=== PATIENT | male | born 1990 | race Caucasian/White ===

== ENCOUNTER 2021-11-24 19:53 | Emergency (ER) | payer BC ==
--- OUTSIDE RECORDS SUMMARY | 2021-11-24 19:56 | XMS REPORT | Continuity of Care Document ---
:1990 Author Organization [facility] t Address [facility] Syd Webb [address] [place] [address] Care Team Providers Name Role Phone Purvi Perez Attending Clinician Juan Jose Bentley DO Attending Clinician GRACE Attending Clinician Unavailable Grace MANCUSO Attending Clinician Payers Payer Name Policy Type Policy Number Effective Date Expiration Date S ource Problems Condition Condition Condition Status Onset Resolution Last Treating Co mments Source Name Details Category Date Date Treatment Clinician Date No known No known Disease Unive rs active active ity of problems problems [facility] Allergies, Adverse Reactions, Alerts Allergy Allergy Status Severity Reaction(s) Onset Inactive Treating Comm ents Source Name Type Date Date Clinician NO KNOWN Drug Active Univers ALLERGIE Class ity of S [facility] Social History Social Habit Start Date Stop Date Quantity Comments Source Exposure to Not sure [facility]-CoV-2 [facility] (event) [place] Alcohol intake 2020-09-24 2020-09-24 Current drinker of Un iversity of 00:00:00 00:00:00 alcohol (finding) [facility] edical [place] Tobacco use and 2020-09-24 2020-09-24 Current user Univers ity of exposure 00:00:00 00:00:00 [facility] Alcohol Comment 2013-08-28 2013-08-28 occasional Universit y of 00:00:00 00:00:00 [facility] Sex Ass[birth year] At [birth year] Universit y of 00:00:00 00:00:00 [facility] Smoking Status Start Date Stop Date Source Never smoker [facility] Medications Ordered Filled Start Stop Current Ordering Indication Dosage Frequency Signature Comments Components Source Medication Medication Date Date Medication? Clinician (SIG) Name Name SERTraline Yes [id number] 100mg Take 1 Univers 100 mg 2-11 tablet by ity of tablet 00:00: mouth [place] 00 daily. Medical Branch SERTraline Yes [id number] 100mg Take 1 Univers 100 mg 2-11 tablet by ity of tablet 00:00: mouth [place] 00 daily. [facility] Branch SERTraline Yes [id number] 100mg Take 1 Univers 100 mg 2-11 tablet by ity of tablet 00:00: mouth [place] 00 daily. Medical Branch SERTraline Yes [id number] 100mg Take 1 Univers 100 mg 2-11 tablet by ity of tablet 00:00: mouth [place] 00 daily. [facility] Branch SERTraline Yes [id number] 100mg Take 1 Univers 100 mg 2-11 tablet by ity of tablet 00:00: mouth [place] 00 daily. [facility] Branch SERTraline Yes [id number] 100mg Take 1 Univers 100 mg 2-11 tablet by ity of tablet 00:00: mouth [place] 00 daily. [facility] Branch SERTraline Yes [id number] 100mg Take 1 Univers 100 mg 2-11 tablet by ity of tablet 00:00: mouth [place] 00 daily. [facility] Branch hydrOXYzine 2020- No [id number] 50mg Take 1 Univers 50 mg 2-11 03-14 tablet by ity of tablet 00:00: 05:59 mouth 3 [place] 00 :00 (three) Medical times Branch daily as needed for Anxiety for up to 30 days. hydrOXYzine 2020- No [id number] 50mg Take 1 Univers 50 mg 2-11 03-14 tablet by ity of tablet 00:00: 05:59 mouth 3 [place] 00 :00 (three) Medical times Branch daily as needed for Anxiety for up to 30 days. SERTraline 2020- No [id number] 100mg Take 1 Univers 100 mg 1-10 02-11 tablet by ity of tablet 00:00: 00:00 mouth [place] 00 :00 daily. [facility] Branch SERTraline 2020- No [id number] 100mg Take 1 Univers 100 mg 1-10 02-11 tablet by ity of tablet 00:00: 00:00 mouth [place] 00 :00 daily. [facility] Branch SERTraline 2019- No [id number] 100mg Take 1 Univers 100 mg 8-20 09-20 tablet by ity of tablet 00:00: 04:59 mouth [place] 00 :00 daily for Medical 30 days. Branch fluticasone 2019- No [id number] 1{spray Use 1 Univers propionate 04-01 } [place] ity of (FLONASE 00:00: 04:59 each [place] ALLERGY 00 :00 nostril Medical RELIEF) 50 daily for Bran ch mcg/actuati 7 days. on nasal spray fluticasone 2019- No [id number] 1{spray Use 1 Univers propionate 04-01 } [place] ity of (FLONASE 00:00: 04:59 each [place] ALLERGY 00 :00 nostril Medical RELIEF) 50 daily for Bran ch mcg/actuati 7 days. on nasal spray fluticasone 2019- No [id number] 1{spray Use 1 Univers propionate 04-01 } [place] ity of (FLONASE 00:00: 04:59 each [place] ALLERGY 00 :00 nostril Medical RELIEF) 50 daily for Bran ch mcg/actuati 7 days. on nasal spray SERTraline Yes [id number] Start 1/2 Univers (ZOLOFT) 50 6-10 tab po ity of mg tablet 00:00: daily x 1 [place] 00 week, then Medical increase Branch to 1 tab po daily SERTraline Yes [id number] Start 1/2 Univers (ZOLOFT) 50 6-10 tab po ity of mg tablet 00:00: daily x 1 [place] 00 week, then Medical increase Branch to 1 tab po daily SERTraline 2019- No [id number] Start 1/2 Univers (ZOLOFT) 50 6-10 08-20 tab po ity o f mg tablet 00:00[place] 00:00 [place] x 1 [place], then Medical increase Branch to 1 tab po daily Immunizations Ordered Immunization Filled Immunization Date Status Commen ts Source Name Name Polio (IPV/OPV) 2017-01-26 Completed Universit y of 00:00:00 [facility] Polio (IPV/OPV) 2017-01-26 Completed Universit y of 00:00:00 [facility] Polio (IPV/OPV) 2017-01-26 Completed Universit y of 00:00:00 [facility] Polio (IPV/OPV) 2017-01-26 Completed Universit y of 00:00:00 [facility] Polio (IPV/OPV) 2017-01-26 Completed Universit y of 00:00:00 [facility] Polio (IPV/OPV) 2017-01-26 Completed Universit y of 00:00:00 [facility] Polio (IPV/OPV) 2017-01-26 Completed Universit y of 00:00:00 [facility] Polio (IPV/OPV) 2017-01-26 Completed Universit y of 00:00:00 [facility] Polio (IPV/OPV) 2017-01-26 Completed Universit y of 00:00:00 [facility] Polio (IPV/OPV) 2017-01-26 Completed Universit y of 00:00:00 [facility] TDAP 2017-01-16 Completed University of 00:00:00 [facility] Meningococcal 2017-01-16 Completed University of Polysaccharide 00:00:00 [place] Medi kasandra (groups A, C, Y and Branc h W-135) conjugate vaccine (MCV4P) Tdap 2017-01-16 Completed University of 00:00:00 [facility] Meningococcal 2017-01-16 Completed University of Polysaccharide 00:00:00 [place] Medi kasandra (groups A, C, Y and Branc h W-135) conjugate vaccine (MCV4P) Tdap 2017-01-16 Completed University of 00:00:00 [facility] Meningococcal 2017-01-16 Completed University of Polysaccharide 00:00:00 [place] Medi kasandra (groups A, C, Y and Branc h W-135) conjugate vaccine (MCV4P) Tdap 2017-01-16 Completed University of 00:00:00 [facility] Meningococcal 2017-01-16 Completed University of Polysaccharide 00:00:00 [place] Medi kasandra (groups A, C, Y and Branc h W-135) conjugate vaccine (MCV4P) TDAP 2017-01-16 Completed University of 00:00:00 [facility] Meningococcal 2017-01-16 Completed University of Polysaccharide 00:00:00 [place] Medi kasandra (groups A, C, Y and Branc h W-135) conjugate vaccine (MCV4P) TDAP 2017-01-16 Completed University of 00:00:00 [facility] Meningococcal 2017-01-16 Completed University of Polysaccharide 00:00:00 [place] Medi kasandra (groups A, C, Y and Branc h W-135) conjugate vaccine (MCV4P) TDAP 2017-01-16 Completed University of 00:00:00 [facility] Meningococcal 2017-01-16 Completed University of Polysaccharide 00:00:00 [place] Medi kasandra (groups A, C, Y and Branc h W-135) conjugate vaccine (MCV4P) TDAP 2017-01-16 Completed University of 00:00:00 [facility] Meningococcal 2017-01-16 Completed University of Polysaccharide 00:00:00 [place] Medi kasandra (groups A, C, Y and Branc h W-135) conjugate vaccine (MCV4P) TDAP 2017-01-16 Completed University of 00:00:00 [facility] Meningococcal 2017-01-16 Completed University of Polysaccharide 00:00:00 [place] Medi kasanrda (groups A, C, Y and Branc h W-135) conjugate vaccine (MCV4P) TDAP 2017-01-16 Completed University of 00:00:00 [facility] Meningococcal 2017-01-16 Completed University of Polysaccharide 00:00:00 [place] Medi kasandra (groups A, C, Y and Branc h W-135) conjugate vaccine (MCV4P) Vital Signs Vital Name Observation Time Observation Value Comments Source Body weight 2020-09-24 15:10:00 148.326 kg [facility] BMI 2020-09-24 15:10:00 43.14 kg/m2 [facility] Systolic blood 2020-09-24 15:10:00 129 mm[Hg] Univer sity of [facility] Diastolic blood 2020-09-24 15:10:00 89 mm[Hg] Unive rsity of [facility] Heart rate 2020-09-24 15:10:00 52 /min [facility] Body height 2020-09-24 15:10:00 185.4 cm [facility] Systolic blood 2019-04-01 18:47:00 126 mm[Hg] Univer sity of [facility] Diastolic blood 2019-04-01 18:47:00 81 mm[Hg] Unive rsity of [facility] Heart rate 2019-04-01 18:47:00 66 /min [facility] Body temperature 2019-04-01 15:39:00 36.72 [place] Univ ersity [facility] Body height 2019-04-01 15:39:00 185.4 cm [facility] Body weight 2019-04-01 15:39:00 140.615 kg [facility] BMI 2019-04-01 15:39:00 40.90 kg/m2 [facility] Procedures Procedure Date / Time Performing Clinician Source Performed COMP. METABOLIC PANEL 2019-04-01 16:04:00 Nancy Holman [facility] ([id number]) [facility] CBC WITH DIFFERENTIAL 2019-04-01 16:04:00 Nancy Holman [facility] Encounters Start End Encounter Admission Attending Care Care Encounter Source Date/Time Date/Time Type Type Clinicians Facility Department ID 2021-03-19 2021-03-19 [facility] [id number] Univers 00:00:00 00:00:00 [facility] [id number] i ty of [place] [id number] Gerald as Professio [id number] [address] Office [facility] One 2020-12-20 2020-12-20 Telephone Nancy [facility] [id number] Univers 00:00:00 00:00:00 [facility] Health [id number] i ty of [place] [id number] Gerald as Professio [id number] [address] Office [facility] One 2020-11-03 2020-11-03 Patient Mc [facility] [id number] Univers 00:00:00 00:00:00 Outreach Tony PRIMARY [id number] i ty of [place] C[place] [id number] [place] [id number] [address] 2020-09-28 2020-09-28 Outpatient R [facility] [id number] Univers 08:00:00 08:00:00 [id number] florinda [facility] 2020-09-28 2020-09-28 [facility] [id number] Univers 08:00:00 08:00:00 NANCY neely [facility] 2020-09-24 2020-09-24 Office [facility] [id number] Univers 08:49:58 09:47:18 Visit Nancy Manriquez [id number] it y of [place] [id number] Gerald as Professio [id number] Ok dicco nal 044 [facility] One 2020-09-24 2020-09-24 [facility] [id number] Univers 09:00:00 09:00:00 NANCY [id number] florinda [facility] 2020-09-24 2020-09-24 [facility]patient [facility] [id number] Univers 09:00:00 09:00:00 NANCY neely [facility] 2019-04-01 2019-04-02 Office [facility] [id number] Univers 10:34:17 08:33:15 Visit Nancy Manriquez [id number] it y of [place] [id number] Gerald as Professio [id number] Ok dical nal [address] [place] [address] One Results Test Description Test Time Test Comments Results Result Comments Source COMP. METABOLIC PANEL (60635) 2019-04-01 22:23:00 Test Item Value Reference Range Interpretation Comme nts NA (test code = 5075672126) 144 mmol/L 135-145 K (test code = 7143435531) 4.8 mmol/L 3.5-5 CL (test code = 4082123895) 105 mmol/L 98-108 CO2 TOTAL (test code = 2605645504) 29 mmol/L 23-31 AGAP (test code = 9246033322) 2-16 BUN (test code = 5156454071) 17 mg/dL 7-23 GLUCOSE (test code = 4309141957) 79 mg/dL 70-110 CREATININE (test code = 0.80 mg/dL 0.6-1.25 9889258947) TOTAL BILI (test code = 0.3 mg/dL 0.1-1.3 5150001210) CALCIUM (test code = 7723055716) 9.7 mg/dL 8.6-10.6 T PROTEIN (test code = 3167291198) 7.7 g/dL 6.3-8.2 ALBUMIN (test code = 3007913799) 4.4 g/dL 3.5-5 ALK PHOS (test code = 9317012020) 90 U/L 34-122 ALT(SGPT) (test code = 5513580091) 56 U/L 9-51 H AST(SGOT) (test code = 9303902476) 38 U/L 13-40 eGFR Calculation (Non- mL/min/1.73m2 [place]) (test code = 6698862902) eGFR Calculation ( mL/min/1.73m2 Czech) (test code = 2225637655) DORY (test code = DORY) Association of Glomerular Filtration Rate (GFR) and Staging of Kidney Disease*+ + + +| GFR (mL/min/1.73 m2)?| With Kidney Damage?|?Without Kidney Damage+ +-- + +|?>90?|?Stage one?|? Normal?+ +- + +|?60-89?|?Stage two?|? Decreased GFR? + +-------- + ------+|?30-59?|?Stage three?|? Stage three? + +-------- + ------+|?15-29?|?Stage four? |? Stage four?+ +--- + +|?<15 (or dialysis)?|?Stage five? |? Stage five?+ +--- + +*Each stage assumes the associated GFR level has been in effect for at least three months.?Stages 1 to 5, with or without kidney disease, indicate chronic kidney disease.Notes: Determination of stages one and two (with eGFR >59mL/min/1.73 m2) requires estimation of kidney damage for at least three months as defined by structural or functional abnormalities of the kidney, manifested by either:Pathological abnormalities or Markers of kidney damage (including abnormalities in the composition of the blood or urine or abnormalities in imaging tests). Lab Interpretation (test code = Abnormal 13108-5) [facility] WITH [id number] 21:32:00 Test Item Value Reference Range Interpretation Comments WBC (test code = See_Comment [Automated 3090-2) message] The sy stem which generated this result transmitted reference range : 4.20 - 10.70 10*3/?L. The reference range was not used to interpret this result as normal/abnormal . RBC (test code = See_Comment [Automated 789-8) message] The sy stem which generated this result transmitted reference range : 4.26 - 5.52 10*6/?L. The reference range was not used to interpret this result as normal/abnormal . HGB (test code = 14.9 g/dL 12.2-16.4 718-7) HCT (test code = 46.6 % 38.4-49.3 4544-3) MCV (test code = 88.4 fL 81.7-95.6 787-2) MCH (test code = 28.3 pg 26.1-32.7 785-6) MCHC (test code = 32.0 g/dL 31.2-35 786-4) RDW-SD (test code = 44.4 fL 38.5-51.6 30948-7) RDW-CV (test code = 13.9 % 12.1-15.4 788-0) PLT (test code = See_Comment H [Automated 777-3) message] The sy stem which generated this result transmitted reference range : 150 - 328 10*3/ ?L. The reference r celestina was not used to interpret this result as normal/abnormal . MPV (test code = 9.9 fL 9.8-13 01620-0) NRBC/100 WBC (test See_Comment [Automat ed code = 0696011996) message] The system which generated this result transmitted reference range : 0.0 - 10.0 /100 WBCs. The refer ence range was not u sed to interpret th is result as normal/abnormal . NRBC x10^3 (test code <0.01 See_Comment [Auto mated = 2328344803) message] The s ystem which generated this result transmitted reference range : 10*3/?L. The reference range was not used to interpret this result as normal/abnormal . GRAN MAT (NEUT) % 74.4 % (test code = 770-8) IMM GRAN % (test code 0.50 % = 3637557710) LYMPH % (test code = 15.4 % 736-9) MONO % (test code = 7.9 % 5905-5) EOS % (test code = 1.2 % 713-8) BASO % (test code = 0.6 % 706-2) GRAN MAT x10^3(ANC) 6.33 10*3/uL 1.99-6.95 (test code = 0818132825) IMM GRAN x10^3 (test 0.04 10*3/uL 0-0.06 code = 1818260743) LYMPH x10^3 (test code 1.31 10*3/uL 1.09-3.23 = 731-0) MONO x10^3 (test code 0.67 10*3/uL 0.36-1.02 = 742-7) EOS x10^3 (test code = 0.10 10*3/uL 0.06-0.53 711-2) BASO x10^3 (test code 0.05 10*3/uL 0.01-0.09 = 704-7) Lab Interpretation Abnormal (test code = 51589-1) [facility]"
[2021-11-24] MEDS ORDERED: MORPHINE 4 MG/ML SYR ONE (22:20)
[2021-11-24] MEDS ORDERED: ONDANSETRON 4 MG/2 ML VIAL ONE (22:20)
[2021-11-24] MEDS ORDERED: NA CHLORIDE 0.9% 1,000 ML ONE (22:21)
[2021-11-24 22:35] LABS: Urine Blood Negative (Negative); Urine Glucose Negative (Negative); Urine Protein Negative (Negative); Urine Specific Gravity 1.025 (1.005-1.030)
[2021-11-24 22:42] LABS: Absolute Lymphocytes (CBC) 3.2 K/uL (0.7-4.9); Hematocrit 45.4 % (39.6-49.0); Lymphocytes % 28.2 % (15.3-44.8); MPV 7.8 fL (7.6-11.3); RBC Red Blood Cell Count 5.43 M/uL (4.33-5.43)
[2021-11-24 22:50] LABS: Urine Bacteria <20 /HPF (NONE SEEN); Urine Yeast FEW (NONE SEEN)
[2021-11-24 23:00] LABS: ALT/SGPT 56 U/L (12-78); AST/SGOT 26 U/L (15-37); Albumin 3.7 g/dL (3.4-5.0); Alkaline Phosphatase 92 U/L (45-117); BUN Blood Urea Nitrogen 14 mg/dL (7-18); Bicarbonate 30 mmol/L (21-32); Bilirubin Total 0.3 mg/dL (0.2-1.0); Glucose Level 104 mg/dL (74-106); Lipase 211 U/L (73-393); Potassium 3.8 mmol/L (3.5-5.1); Sodium Level 140 mmol/L (136-145)
--- NOTE | 2021-11-25 01:21 | EDPHYS ---
Physician Documentation [facility] Name: Nas Moncada Jr Age: 31 yrs Sex: Male : 1990 Arrival Date: 11/24/2021 Time: 19:56 Bed Treatment Private MD: ED Physician Rikki Downs HPI: 11/24 22:20 This 31 yrs old Male presents to ER via Ambulatory with complaints of Abdominal Pain, cp Back Pain. 22:20 The patient presents with abdominal pain started as lower abdomen pain bilaterally 2 cp days ago, now left side lower abdomen pain since this morning. The symptoms radiate to low back. Associated signs and symptoms: none. The symptoms are described as constant. 22:20 Severity of pain: in the emergency department the pain is unchanged despite home cp interventions. Historical: - Allergies: 21:13 No Known Allergies; lp1 - Home Meds: 21:13 None [Active]; lp1 - PMHx: 21:13 None; lp1 - PSHx: 21:13 None; lp1 - Immunization history:: Adult Immunizations up to date, Client reports having NOT received the Covid vaccine. - Social history:: Smoking status: Reported history of juuling and/or vaping. ROS: 22:25 Constitutional: Negative for body aches, chills, fever, poor PO intake. cp 22:25 Eyes: Negative for injury, pain, redness, and discharge. cp 22:25 ENT: Negative for ear pain, sore throat, difficulty swallowing, difficulty handling secretions. 22:25 Cardiovascular: Negative for chest pain, palpitations. 22:25 Respiratory: Negative for cough, shortness of breath, wheezing. 22:25 Abdomen/GI: Positive for abdominal pain, Negative for vomiting, diarrhea, constipation. 22:25 Back: Positive for radiated pain, of the low back area. 22:25 Neuro: Negative for altered mental status, headache, weakness. 22:25 All other systems are negative. Exam: 22:30 Constitutional: The patient appears in no acute distress, alert, awake, cp non-diaphoretic, non-toxic, well developed, well nourished, obese, uncomfortable. 22:30 Head/Face: Normocephalic, atraumatic. cp 22:30 Eyes: Periorbital structures: appear normal, Conjunctiva: normal, no exudate, no injection, Sclera: no appreciated abnormality, Lids and lashes: appear normal, bilaterally. 22:30 ENT: External ear(s): are unremarkable, Nose: is normal, Mouth: Lips: moist, Oral mucosa: moist, Posterior pharynx: Airway: no evidence of obstruction, patent. 22:30 Chest/axilla: Inspection: normal, Palpation: is normal, no crepitus, no tenderness. 22:30 Cardiovascular: Rate: normal, Rhythm: regular. 22:30 Respiratory: the patient does not display signs of respiratory distress, Respirations: normal, no use of accessory muscles, no retractions, labored breathing, is not present, Breath sounds: are clear throughout, no decreased breath sounds, no stridor, no wheezing. 22:30 Abdomen/GI: Inspection: obese Bowel sounds: active, all quadrants, Palpation: soft, in all quadrants, moderate abdominal tenderness, in the suprapubic area and left lower quadrant, rebound tenderness, is not appreciated, voluntary guarding, is elicited in the suprapubic area and left lower quadrant. 22:30 Back: pain, that is moderate, of the low back area, ROM is painful. 22:30 Neuro: Orientation: to person, place \T\ time. Mentation: is normal, Motor: moves all fours, strength is normal. Vital Signs: 21:13 BP 133 / 72; Pulse 78; Resp 18; Temp 98.8(TE); Pulse Ox 100% on R/A; Weight 145.15 kg lp1 (R); Height 6 ft. 1 in. (185.42 cm); Pain 7/10; 21:13 Body Mass Index 42.22 (145.15 kg, 185.42 cm) lp1 MDM: 21:36 Patient medically screened. cp 11/25 01:20 Data reviewed: vital signs, nurses notes, lab test result(s), radiologic studies, CT cp scan. 01:20 Counseling: I had a detailed discussion with the patient and/or guardian regarding: the cp historical points, exam findings, and any diagnostic results supporting the discharge/admit diagnosis, lab results, radiology results, the need for outpatient follow up, a second baker. Response to treatment: the patient's symptoms have markedly improved after treatment, and as a result, I will discharge patient. ED course: VSS. Pain improved with meds. Will treat with oral antibiotics for diverticulitis and discharge to home for continued monitoring. 11/24 22:02 Order name: CBC with Diff; Complete Time: 23:23 cp 11/24 22:02 Order name: CMP; Complete Time: 23:23 cp 11/24 22:02 Order name: Lipase; Complete Time: 23:23 cp 11/24 22:02 Order name: Urine Microscopic Only; Complete Time: 23:23 cp 11/24 23:23 Interpretation: Normal except: UWBC 5-10; URBC 5-10. cp 11/24 22:36 Order name: Urine Dipstick-Ancillary; Complete Time: 23:23 EDMS 11/24 22:52 Order name: Urine Culture EDMS 11/24 22:02 Order name: CT Abd/Pelvis - IV Contrast Only cp 11/24 22:02 Order name: IV Saline Lock; Complete Time: 22:29 cp 11/24 22:02 Order name: Labs collected and sent; Complete Time: 22:29 cp 11/24 22:02 Order name: Urine Dipstick-Ancillary (obtain specimen); Complete Time: 22:29 cp 11/25 01:20 Order name: PO challenge; Complete Time: 01:40 cp Administered Medications: 11/24 22:28 Drug: NS 0.9% 1000 ml Route: IV; Rate: 1 bolus; Site: left antecubital; lg3 22:28 Drug: morphine 4 mg Route: IVP; Site: left antecubital; lg3 22:28 Follow up: Response: No adverse reaction; RASS: Alert and Calm (0) lg3 22:28 Drug: Zofran (Ondansetron) 4 mg Route: IVP; Site: left antecubital; lg3 22:28 Follow up: Response: No adverse reaction lg3 11/25 01:40 Drug: Cipro (ciprofloxacin) 500 mg Route: PO; lg3 01:40 Follow up: Response: No adverse reaction lg3 01:40 Drug: metroNIDAZOLE 500 mg Route: PO; lg3 01:40 Follow up: Response: No adverse reaction lg3 Disposition: 03:05 Co-signature as Attending Physician, Rikki Downs MD I agree with the assessment and kdr plan of care. Disposition Summary: 11/25/21 01:21 Discharge Ordered Location: Home cp Problem: new cp Symptoms: have improved cp Condition: Stable cp Diagnosis - Lower abdominal pain, unspecified cp Followup: cp - With: Rafy Powers MD - When: 1 week - Reason: Recheck today's complaints Discharge Instructions: - Discharge Summary Sheet cp - Abdominal Pain, Adult cp - Diverticulitis cp - Form - Return To Work cp Forms: - Medication Reconciliation Form cp - Thank You Letter cp - Antibiotic Education cp - Prescription Opioid Use cp - Work release form mw2 Prescriptions: - Cipro 500 mg Oral Tablet - take 1 tablet by ORAL route every 12 hours for 10 days; 20 tablet; Refills: 0, cp Product Selection Permitted - Zofran 4 mg Oral Tablet - take 1 tablet by ORAL route every 12 hours As needed; 20 tablet; Refills: 0, cp Product Selection Permitted - Metronidazole 500 mg Oral Tablet - take 1 tablet by ORAL route every 8 hours; 30 tablet; Refills: 0, Product cp Selection Permitted - dicyclomine 20 mg Oral Tablet - take 1 tablet by ORAL route 4 times per day; 30 tablet; Refills: 0, Product cp Selection Permitted Signatures: Dispatcher [employer] EDMS Rikki Downs MD MD kdr Pena, Laura RN RN lp1 John Tang PA PA Ayleen Zamudio, RN RN lg3
--- NOTE | 2021-11-25 01:21 | ER ---
Nurse's Notes [facility] Name: Nas Moncada Jr Age: 31 yrs Sex: Male : 1990 Arrival Date: 11/24/2021 Time: 19:56 Bed Treatment Private MD: Diagnosis: Lower abdominal pain, unspecified Presentation: 11/24 21:11 Chief complaint: Patient states: Lower abdominal pain radiating to low back and left lp1 side; Denies nausea, vomiting, diarrhea, constipation. Coronavirus screen: At this time, the client does not indicate any symptoms associated with coronavirus-19. Ebola Screen: No symptoms or risks identified at this time. Risk Assessment: Do you want to hurt yourself or someone else? Patient reports no desire to harm self or others. Onset of symptoms was November 24, 2021. 21:11 Method Of Arrival: Ambulatory lp1 21:11 Acuity: ROGER 3 lp1 21:13 Initial Sepsis Screen: Does the patient meet any 2 criteria? No. Patient's initial lp1 sepsis screen is negative. Does the patient have a suspected source of infection? No. Patient's initial sepsis screen is negative. Triage Assessment: 11/25 01:39 General: Behavior is calm, cooperative. lg3 Historical: - Allergies: 11/24 21:13 No Known Allergies; lp1 - Home Meds: 21:13 None [Active]; lp1 - PMHx: 21:13 None; lp1 - PSHx: 21:13 None; lp1 - Immunization history:: Adult Immunizations up to date, Client reports having NOT received the Covid vaccine. - Social history:: Smoking status: Reported history of juuling and/or vaping. Screenin:35 Abuse screen: Denies threats or abuse. Denies injuries from another. Nutritional lg3 screening: No deficits noted. Tuberculosis screening: No symptoms or risk factors identified. Fall Risk None identified. Assessment: 22:35 General: Appears in no apparent distress. uncomfortable. Pain: Complains of pain in lg3 left upper quadrant and left lower quadrant Pain radiates to back. Neuro: No deficits noted. Level of Consciousness is awake, alert, obeys commands, Oriented to person, place, time, situation. Cardiovascular: No deficits noted. Denies chest pain, shortness of breath. Respiratory: No deficits noted. Airway is patent Trachea midline Respiratory effort is even, unlabored, Respiratory pattern is regular, symmetrical. GI: Bowel sounds present X 4 quads. Abd is soft X 4 quads Abdomen is tender to palpation. : No deficits noted. No signs and/or symptoms were reported regarding the genitourinary system. EENT: No deficits noted. No signs and/or symptoms were reported regarding the EENT system. Derm: No deficits noted. No signs and/or symptoms reported regarding the dermatologic system. Skin is intact, is healthy with good turgor. Musculoskeletal: No deficits noted. No signs and/or symptoms reported regarding the musculoskeletal system. Circulation, motion, and sensation intact. Capillary refill < 3 seconds, Range of motion: intact in all extremities. 11/25 01:39 Reassessment: Patient appears in no apparent distress at this time. No changes from lg3 previously documented assessment. Patient and/or family updated on plan of care and expected duration. Pain level reassessed. Patient is alert, oriented x 3, equal unlabored respirations, skin warm/dry/pink. Patient states feeling better. Patient states symptoms have improved. Vital Signs: 11/24 21:13 BP 133 / 72; Pulse 78; Resp 18; Temp 98.8(TE); Pulse Ox 100% on R/A; Weight 145.15 kg lp1 (R); Height 6 ft. 1 in. (185.42 cm); Pain 7/10; 21:13 Body Mass Index 42.22 (145.15 kg, 185.42 cm) lp1 ED Course: 19:56 Patient arrived in ED. rg4 20:17 John Tang PA is PHCP. cp 20:17 Rikki Downs MD is Attending Physician. cp 21:12 Triage completed. lp1 21:12 Arm band placed on right wrist. lp1 22:05 Ayleen Ruff, LOLLY is Primary Nurse. lg3 22:29 CBC with Diff Sent. lg3 22:29 CMP Sent. lg3 22:29 Lipase Sent. lg3 22:29 Urine Microscopic Only Sent. lg3 22:35 Patient has correct armband on for positive identification. Bed in low position. Call lg3 light in reach. Side rails up X 1. Door closed. Noise minimized. 22:35 Inserted saline lock: 20 gauge in left antecubital area, using aseptic technique. Blood lg3 collected. 11/25 00:37 CT Abd/Pelvis - IV Contrast Only In Process Unspecified. EDMS 01:20 Rafy Powers MD is Referral Physician. cp 01:39 No provider procedures requiring assistance completed. IV discontinued, intact, lg3 bleeding controlled, No redness/swelling at site. Pressure dressing applied. Administered Medications: 11/24 22:28 Drug: NS 0.9% 1000 ml Route: IV; Rate: 1 bolus; Site: left antecubital; lg3 22:28 Drug: morphine 4 mg Route: IVP; Site: left antecubital; lg3 22:28 Follow up: Response: No adverse reaction; RASS: Alert and Calm (0) lg3 22:28 Drug: Zofran (Ondansetron) 4 mg Route: IVP; Site: left antecubital; lg3 22:28 Follow up: Response: No adverse reaction lg3 11/25 01:40 Drug: Cipro (ciprofloxacin) 500 mg Route: PO; lg3 01:40 Follow up: Response: No adverse reaction lg3 01:40 Drug: metroNIDAZOLE 500 mg Route: PO; lg3 01:40 Follow up: Response: No adverse reaction lg3 Outcome: 01:21 Discharge ordered by MD. cp 01:39 Discharged to home ambulatory. lg3 01:39 Condition: stable 01:39 Discharge instructions given to patient, Instructed on discharge instructions, follow up and referral plans. medication usage, Demonstrated understanding of instructions, follow-up care, medications, Prescriptions given X 4. 01:40 Patient left the ED. lg3 Signatures: Dispatcher [employer] EDMS Corinne Keenan, RN RN lp1 John Tang PA PA Ellie Ladd rg4 Ayleen Ruff RN RN lg3
[2021-11-25] MEDS ORDERED: metroNIDAZOLE 500 MG TABLET ONE (01:30)
[2021-11-25] MEDS ORDERED: CIPROFLOXACIN HCL 500 MG TAB ONE (01:31)
[2021-11-25] MEDS ORDERED: METHYLPREDNISOLONE 125 MG INJ ONE (01:47)
[2021-11-25 07:47] VITALS: BP 133/72; TEMP 98.8; O2SAT 100
--- NOTE | 2021-11-25 15:57 | RAD REPORT ---
EXAM DESCRIPTION: CT - Abdomen Pelvis W Contrast - 11/25/2021 5:42 am CLINICAL HISTORY: 31 years, Male, Abdominal pain, acute, nonlocalized COMPARISON: None. TECHNIQUE: Contrast-enhanced images of the abdomen and pelvis were performed utilizing 5 mm slice th ickness at 5 mm interval reconstruction from the lung bases to the ischial tuberosities after the adm inistration IV contrast. In addition multiplanar reformats in the coronal and sagittal plane were obtained and reviewed. This exam was performed according to our departmental dose-optimization protocol, which includes auto mated exposure control, adjustment of the mA and/or kV according to patient size and/or use of iterat joe reconstruction technique. FINDINGS: The lung bases demonstrate to be clear. The liver demonstrates slight decreased attenuation suggesting mild fatty infiltration. Otherwise the liver, gallbladder, pancreas, spleen and adrenal glands demonstrate to be unremarkable, no focal les ions are noted. The kidneys demonstrate normal uptake of contrast media. No evidence for nephrolithiasis and/or hydro nephrosis. Grossly the unopacified stomach, small bowel and large bowel demonstrate to be within normal limits. There is no evidence for bowel dilatation/or free air. The appendix is normal. The left site colo n is decompressed limiting diagnostic value The urinary bladder demonstrate to be unremarkable. The prostate gland is normal. The aorta demon strate to be normal. There is no retroperitoneal lymphadenopathy. There is no evidence for ascites/ or significant abnormal fluid collections. The rest of the soft tissue and bony structures are within normal limits. IMPRESSION: No acute intra-abdominal process. Mild fatty infiltration of the liver. Electronically signed by: Fleix Frankel MD 11/25/2021 12:49 AM CDT Due to temporary technical issues with the PACS/Fluency reporting system, reports are being signed by the in house radiologists without review as a courtesy to insure prompt reporting. The interpreting radiologist is fully responsible for the content of the report.
== END 2021-11-25 01:40 | disposition home or self-care (01) ==
LOC: ER 19:53
DX: R10.32 Left lower quadrant pain (principal)
CPT/HCPCS: 87088; 85025; 87086; 36415; 83690; 80053; 74177; 96375; 96374; 99284; Q9967; J7030; J2930; J2405; 81003; 81015

== ENCOUNTER 2021-12-07 17:11 | Emergency (ER) | payer BC ==
--- OUTSIDE RECORDS SUMMARY | 2021-12-07 17:14 | XMS REPORT | Continuity of Care Document ---
:1990 Author Organization [facility] t Address [address] [place] [address] Care Team Providers Name Role Phone Purvi Perez Primary Care Physician Purvi Perez Attending Clinician Lab, - Db Attending Clinician Unavailable Purvi CRUZ Attending Clinician Unavailable Payers Payer Name Policy Type Policy Number Effective Date Expiration Date S ource Problems Condition Condition Condition Status Onset Resolution Last Treating Co mments Source Name Details Category Date Date Treatment Clinician Date No known No known Disease Unive rs active active ity of problems problems [facility] Allergies, Adverse Reactions, Alerts Allergy Allergy Status Severity Reaction(s) Onset Inactive Treating Comm ents Source Name Type Date Date Clinician NO KNOWN Drug Active Univers ALLERGIE Class ity of S [facility] Social History Social Habit Start Date Stop Date Quantity Comments Source History [facility] University o f Alcohol Frequency [place] [facility] History [facility] University o f Alcohol Std [place] [facility] Dr[facility] History [facility] University o f Alcohol Binge [place] [facility] Exposure to 2021-11-22 2021-12-02 Not sure University of SARS-CoV-2 00:00:00 15:23:00 [facility] (event) [place] Alcohol intake 2021-12-02 2021-12-02 Current drinker Unive rsity of 00:00:00 00:00:00 of alcohol [facility] (finding) [place] Tobacco use and 2016-12-05 2016-12-05 Current user Univers ity of exposure 00:00:00 00:00:00 [facility] Alcohol Comment 2013-08-28 2013-08-28 occasional Universit y of 00:00:00 00:00:00 [facility] Sex Ass[birth year] At [birth year] Universit y of 00:00:00 00:00:00 [facility] Smoking Status Start Date Stop Date Source Never smoker [facility] Medications Ordered Filled Start Stop Current Ordering Indication Dosage Frequency Signature Comments Components Source Medication Medication Date Date Medication? Clinician (SIG) Name Name SERTraline Yes [id number] Take 1/2 Univers (ZOLOFT) 50 4-20 tab po ity of mg tablet 00:00: daily x 1 Gerald as 00 week. Then Medical increase Branch to 1 tab po daily SERTraline Yes [id number] Take 1/2 Univers (ZOLOFT) 50 4-20 tab po ity of mg tablet 00:00: daily x 1 Gerald as 00 week. Then Medical increase Branch to 1 tab po daily SERTraline Yes [id number] Take 1/2 Univers (ZOLOFT) 50 4-20 tab po ity of mg tablet 00:00: daily x 1 Gerald as 00 week. Then Medical increase Branch to 1 tab po daily SERTraline Yes [id number] Take 1/2 Univers (ZOLOFT) 50 4-20 tab po ity of mg tablet 00:00: daily x 1 Gerald as 00 week. Then Medical increase Branch to 1 tab po daily SERTraline Yes [id number] Take 1/2 Univers (ZOLOFT) 50 4-20 tab po ity of mg tablet 00:00: daily x 1 Gerald as 00 week. Then Medical increase Branch to 1 tab po daily SERTraline 2021- No [id number] 100mg Take 1 Univers 100 mg 2-11 04-20 tablet by ity of tablet 00:00: 00:00 mouth [place] 00 :00 daily. [facility] Immunizations Ordered Immunization Filled Immunization Date Status Commen ts Source Name Name Polio (IPV/OPV) 2017-01-26 Completed Universit y of 00:00:00 [facility] Polio (IPV/OPV) 2017-01-26 Completed Universit y of 00:00:00 [facility] Polio (IPV/OPV) 2017-01-26 Completed Universit y of 00:00:00 [facility] Polio (IPV/OPV) 2017-01-26 Completed Universit y of 00:00:00 [facility] Polio (IPV/OPV) 2017-01-26 Completed Universit y of 00:00:00 [facility] TDAP 2017-01-16 Completed University of 00:00:00 [facility] Meningococcal 2017-01-16 Completed University of Polysaccharide 00:00:00 [place] [facility] kasandra (groups A, C, Y and Branc h W-135) conjugate vaccine (MCV4P) TDAP 2017-01-16 Completed University of 00:00:00 [facility] Meningococcal 2017-01-16 Completed University of Polysaccharide 00:00:00 [place] [facility] kasandra (groups A, C, Y and Branc h W-135) conjugate vaccine (MCV4P) TDAP 2017-01-16 Completed University of 00:00:00 [facility] Meningococcal 2017-01-16 Completed University of Polysaccharide 00:00:00 [place] [facility] kasandra (groups A, C, Y and Branc h W-135) conjugate vaccine (MCV4P) TDAP 2017-01-16 Completed University of 00:00:00 [facility] Meningococcal 2017-01-16 Completed University of Polysaccharide 00:00:00 [place] Med[facility] kasandra (groups A, C, Y and Branc h W-135) conjugate vaccine (MCV4P) TDAP 2017-01-16 Completed University of 00:00:00 [facility] Meningococcal 2017-01-16 Completed University of Polysaccharide 00:00:00 [place] [facility] kasandra (groups A, C, Y and Branc h W-135) conjugate vaccine (MCV4P) Vital Signs Vital Name Observation Time Observation Value Comments Source Systolic blood 2021-12-01 21:46:00 120 mm[Hg] Univer [facility] Diastolic blood 2021-12-01 21:46:00 83 mm[facility]Hg[facility] Heart rate 2021-12-01 21:46:00 58 /min [facility] Body height 2021-12-01 21:46:00 190.5 cm [facility] Body weight 2021-12-01 21:46:00 148.009 kg [facility] BMI 2021-12-01 21:46:00 40.78 kg/m2 Universi ty of [facility] Oxygen saturation 2021-12-01 21:46:00 99 /min [facility] in Arterial blood Medical Br anch by Pulse oximetry Procedures This patient has no known procedures. Encounters Start End Encounter Admission Attending Care Care Encounter Source Date/Time Date/Time Type Type Clinicians Facility Department ID 2021-12-05 2021-12-05 Telephone Nancy [facility] [id number] Univers 00:00:00 00:00:00 Barbra Purvi HEALTH [id number] i ty of [place] [id number] Gerald as ELIOT?BLEA [id number] [address] OFFICE [facility] 2021-12-03 2021-12-03 [facility] [id number] Univers 00:00:00 00:00:00 Barbra A HEALTH [id number] i ty of [place] [id number] Gerald as ELIOT?BLEA [id number] [address] OFFICE [facility] 2021-12-02 2021-12-02 [facility], Ang - Db [facility] [id number] Univers 15:30:00 15:45:00 Visit Barbra Cruz HEALTH [id number] ity of [place] [id number] Gerald as ELIOT?BLEA [id number] [address] OFFICE [facility] 2021-12-02 2021-12-02 Outpatient R [facility] [id number] Univers 15:30:00 15:30:00 [id number] ity [facility] 2021-12-02 2021-12-02 [id number] Univers 15:30:00 15:30:00 BARBRA itden [facility] 2021-12-02 2021-12-02 Telephone Nancy [facility] [id number] Univers 00:00:00 00:00:00 Barbra A HEALTH [id number] i ty of [place] [id number] Gerald as ELIOT?BLEA [id number] [address] OFFICE BUILDING 2021-12-01 2021-12-01 Office Nancy [facility] [id number] Univers 16:30:00 17:12:34 Visit [facility] [id number] i ty of [place] [id number] Gerald as ELIOT?BLEA [id number] [address] OFFICE BUILDING Results This patient has no known results.
[2021-12-07] MEDS ORDERED: CYCLOBENZAPRINE 10 MG TAB ONE (17:59)
[2021-12-07] MEDS ORDERED: KETOROLAC 30 MG/ML INJ ONE (17:59)
--- NOTE | 2021-12-07 18:32 | RAD REPORT ---
EXAM DESCRIPTION: RAD - Lumbar Spine 3 Views - 12/07/2021 6:27 pm CLINICAL HISTORY: LOWER BACK PAIN COMPARISON: No comparisons FINDINGS: No acute fracture. No malalignment. No significant focal degenerative changes. IMPRESSION: No acute osseous abnormality involving the lumbar spine.
[2021-12-07] MEDS ORDERED: LIDOCAINE 4% PATCH ONE (18:33)
--- NOTE | 2021-12-07 19:00 | EDPHYS ---
Physician Documentation [facility] Name: Nas Moncada Jr Age: 31 yrs Sex: Male : 1990 Arrival Date: 12/07/2021 Time: 17:14 Bed 9 Private MD: Jericho Murray S ED Physician Yaron Sequeira HPI: 12/07 18:40 This 31 yrs old Male presents to ER via Ambulatory with complaints of Back Pain. pm1 18:40 The patient presents with pain acute on chronic pain. The symptoms are located in the pm1 low back. Onset: The symptoms/episode began/occurred present for many years on and off but worse for the past 1 week. The pain radiates to the left leg. Associated signs and symptoms: Pertinent negatives: constipation, dysuria, fever, incontinence. The problem was sustained from unknown cause. Modifying factors: The patient symptoms are alleviated by specific position, the patient symptoms are aggravated by sitting for too long. Severity of symptoms: in the emergency department the symptoms are actually worse. The patient has been recently seen by a physician: the patient's primary care provider, with similar presenting complaints, and apparently given a diagnosis of musculoskeletal issue. Historical: - Allergies: 17:33 No Known Allergies; vg1 - Home Meds: 17:33 None [Active]; vg1 - PMHx: 17:33 None; vg1 - PSHx: 17:33 None; vg1 - Immunization history:: Client reports having NOT received the Covid vaccine. - Social history:: Smoking status: Patient reports use of chewing tobacco. ROS: 18:40 Constitutional: Negative for fever, chills, and weight loss, Cardiovascular: Negative pm1 for chest pain, palpitations, and edema, Respiratory: Negative for shortness of breath, cough, wheezing, and pleuritic chest pain, Abdomen/GI: Negative for abdominal pain, nausea, vomiting, diarrhea, and constipation. 18:40 : Negative for injury, bleeding, discharge, and swelling, Skin: Negative for injury, rash, and discoloration, Neuro: Negative for headache, weakness, numbness, tingling, and seizure. 18:40 Back: Positive for low back pain with radiation to left leg. 18:40 All other systems are negative. Exam: 18:40 Constitutional: This is a well developed, well nourished patient who is awake, alert, pm1 and in no acute distress. Head/Face: Normocephalic, atraumatic. 18:40 Skin: Warm, dry with normal turgor. Normal color with no rashes, no lesions, and no evidence of cellulitis. MS/ Extremity: Pulses equal, no cyanosis. Neurovascular intact. Full, normal range of motion. 18:40 Cardiovascular: Exam negative for acute changes, Rate: normal, Rhythm: regular, Pulses: no pulse deficits are appreciated, Heart sounds: normal. 18:40 Respiratory: Exam negative for acute changes, respiratory distress, shortness of breath, Breath sounds: 18:40 Back: pain, that is mild, of the lumbar area, muscle spasm, is appreciated in the left low back and right low back and left buttocks. 18:40 Neuro: Exam negative for acute changes, Orientation: is normal, Mentation: is normal, Motor: is normal, moves all fours. Vital Signs: 17:31 BP 120 / 65; Pulse 65; Resp 16; Temp 98.0; Pulse Ox 100% ; Weight 145.15 kg; Height 6 vg1 ft. 1 in. (185.42 cm); Pain 8/10; 17:39 BP 122 / 70; Pulse 69; Resp 18; Pulse Ox 100% on R/A; Pain 7/10; ld1 18:48 BP 126 / 77; Pulse 75; Resp 18; Pulse Ox 100% on R/A; ld1 17:31 Body Mass Index 42.22 (145.15 kg, 185.42 cm) vg1 MDM: 17:29 Patient medically screened. pm1 18:59 Data reviewed: vital signs. Data interpreted: Pulse oximetry: on room air is 100 %. pm1 Interpretation: normal. Counseling: I had a detailed discussion with the patient and/or guardian regarding: the historical points, exam findings, and any diagnostic results supporting the discharge/admit diagnosis, radiology results, the need for outpatient follow up, to return to the emergency department if symptoms worsen or persist or if there are any questions or concerns that arise at home. 12/07 17:45 Order name: Lumbar Spine (3 Views) XRAY; Complete Time: 18:40 pm1 Administered Medications: 18:00 Drug: Flexeril (cyclobenzaprine) 10 mg Route: PO; ld1 18:00 Follow up: Response: No adverse reaction ld1 18:00 Drug: Lidoderm Patch 5 % (700 mg/patch) 1 patches Route: Topical; Site: affected area; ld1 18:00 Follow up: Response: No adverse reaction ld1 18:00 Drug: Ketorolac 60 mg Route: IM; Site: right deltoid; ld1 18:00 Follow up: Response: No adverse reaction ld1 Disposition Summary: 12/07/21 19:00 Discharge Ordered Location: Home pm1 Problem: new pm1 Symptoms: have improved pm1 Condition: Stable pm1 Diagnosis - Lumbago with sciatica, left side pm1 Followup: pm1 - With: Emergency Department - When: As needed - Reason: Worsening of condition Followup: pm1 - With: Private Physician - When: 2 - 3 days - Reason: Recheck today's complaints, Continuance of care, Re-evaluation by your physician Discharge Instructions: - Discharge Summary Sheet pm1 - Sciatica pm1 Forms: - Medication Reconciliation Form pm1 - Thank You Letter pm1 - Antibiotic Education pm1 - Prescription Opioid Use pm1 - Work release form pm1 Prescriptions: - Lidoderm 5 % Topical adhesive patch,medicated - apply 1 patch by TRANSDERMAL route once daily As needed 12 hours on and 12 pm1 hours off in a 24 hour period; 10 patch; Refills: 0, Product Selection Permitted - Cyclobenzaprine 10 mg Oral Tablet - take 1 tablet by ORAL route every 8 hours As needed; 30 tablet; Refills: 0, pm1 Product Selection Permitted - Diclofenac Sodium 75 mg Oral Tablet Sustained Release - take 1 tablet by ORAL route 2 times per day; 30 tablet; Refills: 0, Product pm1 Selection Permitted - Tylenol-Codeine #3 300 mg-30 mg Oral - take 2 tablet by ORAL route every 6 hours As needed; 20 tablet; Refills: 0, pm1 Product Selection Permitted Signatures: Dispatcher [employer] Javi Moreno NP [employer] pm1 Regina Abbott RN RN vg1 Patricia Christensen RN RN ld1
--- NOTE | 2021-12-07 19:00 | ER ---
Nurse's Notes [facility] Name: Nas Moncada Jr Age: 31 yrs Sex: Male : 1990 Arrival Date: 12/07/2021 Time: 17:14 Bed 9 Private MD: Jericho Murray S Diagnosis: Lumbago with sciatica, left side Presentation: 12/07 17:31 Chief complaint: Patient states: Lower back pain x1 week; states lifts heavy at home vg1 and work; uncomfortable sitting in certain positions and at times will have Left Leg Numbness; states pain is constant/dull. Coronavirus screen: Vaccine status: Patient reports being unvaccinated. Client denies travel out of the [place] in the last 14 days. Ebola Screen: Patient denies exposure to infectious person. Patient denies travel to an Ebola-affected area in the 21 days before illness onset. Initial Sepsis Screen: Does the patient meet any 2 criteria? No. Patient's initial sepsis screen is negative. Does the patient have a suspected source of infection? No. Patient's initial sepsis screen is negative. Risk Assessment: Do you want to hurt yourself or someone else? Patient reports no desire to harm self or others. Onset of symptoms was November 30, 2021. 17:31 Method Of Arrival: Ambulatory vg1 17:31 Acuity: ROGER 3 vg1 Triage Assessment: 17:33 General: Appears uncomfortable, Behavior is calm, cooperative. Pain: Complains of pain vg1 in back Pain currently is 8 out of 10 on a pain scale. Derm: Skin is pink, warm \T\ dry. Musculoskeletal: Circulation, motion, and sensation intact. Historical: - Allergies: 17:33 No Known Allergies; vg1 - Home Meds: 17:33 None [Active]; vg1 - PMHx: 17:33 None; vg1 - PSHx: 17:33 None; vg1 - Immunization history:: Client reports having NOT received the Covid vaccine. - Social history:: Smoking status: Patient reports use of chewing tobacco. Screenin:39 Abuse screen: Denies threats or abuse. Denies injuries from another. Nutritional ld1 screening: No deficits noted. Tuberculosis screening: No symptoms or risk factors identified. Fall Risk None identified. Assessment: 17:39 General: Appears in no apparent distress. comfortable, Behavior is calm, cooperative, ld1 appropriate for age. Pain: Complains of pain in back Pain does not radiate. Pain currently is 8 out of 10 on a pain scale. Neuro: Level of Consciousness is awake, alert, obeys commands, Oriented to person, place, time, situation. Cardiovascular: Capillary refill < 3 seconds Patient's skin is warm and dry. Respiratory: Airway is patent Respiratory effort is even, unlabored. GI: Abdomen is flat, non-distended. : No signs and/or symptoms were reported regarding the genitourinary system. EENT: No signs and/or symptoms were reported regarding the EENT system. Derm: No signs and/or symptoms reported regarding the dermatologic system. Musculoskeletal: Reports pain in back. Vital Signs: 17:31 BP 120 / 65; Pulse 65; Resp 16; Temp 98.0; Pulse Ox 100% ; Weight 145.15 kg; Height 6 vg1 ft. 1 in. (185.42 cm); Pain 8/10; 17:39 BP 122 / 70; Pulse 69; Resp 18; Pulse Ox 100% on R/A; Pain 7/10; ld1 18:48 BP 126 / 77; Pulse 75; Resp 18; Pulse Ox 100% on R/A; ld1 17:31 Body Mass Index 42.22 (145.15 kg, 185.42 cm) vg1 ED Course: 17:14 Patient arrived in ED. mr 17:15 Jericho Murray MD is Private Physician. mr 17:17 Javi Lozada NP is PHCP. pm1 17:17 Yaron Sequeira MD is Attending Physician. pm1 17:28 Patricia Christensen, LOLLY is Primary Nurse. ld1 17:33 Triage completed. vg1 17:33 Arm band placed on. vg1 17:39 Patient has correct armband on for positive identification. Placed in gown. Bed in low ld1 position. Call light in reach. Side rails up X2. monitor tech on. Pulse ox on. NIBP on. Door closed. Noise minimized. Warm blanket given. 17:39 No provider procedures requiring assistance completed. ld1 18:29 Lumbar Spine (3 Views) XRAY In Process Unspecified. EDMS 19:08 Patient did not have IV access during this emergency room visit. kd3 Administered Medications: 18:00 Drug: Flexeril (cyclobenzaprine) 10 mg Route: PO; ld1 18:00 Follow up: Response: No adverse reaction ld1 18:00 Drug: Lidoderm Patch 5 % (700 mg/patch) 1 patches Route: Topical; Site: affected area; ld1 18:00 Follow up: Response: No adverse reaction ld1 18:00 Drug: Ketorolac 60 mg Route: IM; Site: right deltoid; ld1 18:00 Follow up: Response: No adverse reaction ld1 Outcome: 19:00 Discharge ordered by MD. pm1 19:07 Discharged to home ambulatory. kd3 19:07 Condition: stable 19:07 Discharge instructions given to patient, Instructed on discharge instructions, follow up and referral plans. medication usage, Demonstrated understanding of instructions, follow-up care, medications, Prescriptions given X 3. 19:14 Prescriptions given X 4. kd3 19:14 Patient left the ED. kd3 Signatures: Dispatcher [employer] EDND Joann Rob Patrick, PESTICIDE APPLICATOR PESTICIDE APPLICATOR pm1 Regina Abbott RN RN vg1 Patricia Christensen RN RN ld1 Lupe Cordoba RN RN kd3
[2021-12-07 22:47] VITALS: TEMP 98; O2SAT 100
[2021-12-07 22:50] VITALS: BP 126/77
== END 2021-12-07 19:14 | disposition home or self-care (01) ==
LOC: ER 17:11
DX: M54.42 Lumbago with sciatica, left side (principal); F17.220 Nicotine dependence, chewing tobacco, uncomplicated
CPT/HCPCS: 72100; 96372; 99284

== ENCOUNTER 2024-04-14 01:13 | Emergency (ER) | payer BC, OTHER ==
--- OUTSIDE RECORDS SUMMARY | 2024-04-14 01:17 | XMS REPORT | Continuity of Care Document ---
Author Name Unknown Address [address] [place] [address] [facility] thconnect Address [address] [place] [address] Care Team Providers Care Dial Refinisher Name Role Phone Che Perez Primary Care Physician + [phone] ANGELA HAWKINS Attending Clinician Unavailable KATELYN GAFFNEY Attending Clinician UnaELENA Davila Attending Clinician Unavailable NANCY PELAEZ Attending Clinician Unavailab elaine PATEL MD Attending Clinician Unavailab le LAB90 Attending Clinician Unavailable Doctor Unassigned, De Leon Attending Clinician U navailable Che Perez Attending Clinician [phone] Lab, Ang - Db Attending Clinician Unavailable CHE ETIENNE Attending Clinician Unavailable Tony Bentley DO Attending Clinician [phone] NANCY EDWARDS Attending Clinician Unavailable Nancy Dickerson Attending Clinician [phone] Payers Payer Name Policy Type Policy Number Effective Date Expirati on Date Source [facility] [id number] 2023 00:00:00 Problems Condition Name Condition Details Condition Category Status Onset Date Resolution Date Last Treatment Date Treating Clinician Comments Source Prediabete s Prediabete s Disease Active 5-20 00:00: 00 Lizette Sharmaold - Externa l Encounter for screening for lipid disorder Encounter for screening for lipid disorder Disease Active 10-12 00:00: 00 Lizette Seybold - Externa l Class 3 severe obesity due to excess calories without serious comorbidit y with body mass index (BMI) of 45.0 to 49.9 in adult Class 3 severe obesity due to excess calories without serious comorbidit y with body mass index (BMI) of 45.0 to 49.9 in adult Disease Active 10-12 00:00: 00 Lizette Seybold - Externa l Family history of diabetes mellitus Family history of diabetes mellitus Disease Active 10-12 00:00: 00 Lizette Seybold - Externa l Family history of thyroid disease Family history of thyroid disease Disease Active 10-12 00:00: 00 Lizette Sebaronold - Externa l Bilateral tinnitus Bilateral tinnitus Disease Active 10-12 00:00: 00 Lizette Seybold - Externa l Biceps tendonitis of both shoulders Biceps tendonitis of both shoulders Disease Active 03-04 00:00: 00 Lizette Seybold - Externa l Obesity Obesity Disease Active Lizette Seybold - Externa l No known active problems No known active problems Disease [facility] Allergies, Adverse Reactions, Alerts Allergy Name Allergy Type Status Severity Reaction(s) Onset Date Inactive Date Treating Clinician Comments Source NO KNOWN ALLERGIE S Drug Class Active [facility] Social History Social Habit Start Date Stop Date Quantity Comments Source Sexual orientation 2023-10-13 09:31:39 Heterosexual (finding) Lizette Cramer - External History SDOH Alcohol Std Drinks [facility] History SDOH Alcohol Binge [facility] History SDOH Alcohol Frequency [facility] History of Social function 2024-01-12 00:00:00 2024-01-12 00:00:00 Lizette Zafar Alcoholic beverage intake 2024-01-12 00:00:00 2024-01-12 00:00:00 Current drinker of alcohol (finding) Lizette Burt External Cigarettes smoked current (pack per day) - Reported 2024-01-01 00:00:00 2024-01-01 00:00:00 Lizette Cramer - External Cigarette pack-years 2024-01-01 00:00:00 2024-01-01 00:00:00 Lizette Cramer - External Tobacco use and exposure 2024-01-01 00:00:00 2024-01-01 00:00:00 User of smokeless tobacco Lizette Cramer - External Alcohol intake 2023-10-13 00:00:00 2023-10-13 00:00:00 Current drinker of alcohol (finding) Lizette Cramer - External Exposure to SARS-CoV-2 (event) 2021-11-22 00:00:00 2021-12-02 15:23:[address] [facility] Alcohol Comment 2015-02-24 00:00:00 2015-02-24 00:00:00 social Lizette Cramer - External History of tobacco use 2009-02-24 00:00:00 2011-02-24 00:00:00 Snuff User Lizette Cramer - External Sex assigned at 1990 00:00:00 1990 00:00:00 M Lizette Cramer - External Smoking Status Start Date Stop Date Source Ex-smoker 2024-01-01 00:00:00 2024-01-01 00:00:00 Radha khanna Bela - External Never smoked tobacco [facility] Medications Ordered Medication Name Filled Medication Name Start Date Stop Date Current Medication? Ordering Clinician Indication Dosage Frequency Signature (SIG) Comments Components Source Ciprofloxac in-dexAMETH asone (Ciprodex) 0.3-0.1 % otic Suspension 01-11 00:00: 00 01-17 04:59 :00 No [id number] 3[drp] Place 3 drops into the left ear 2 times daily for 5 days. Lizette mead Amoxicillin -Pot Clavulanate 875-125 MG oral Tablet 12-31 00:00: 00 Yes [id number] 1{tbl} Take 1 tablet by mouth 2 times daily. Lizette mead Mupirocin (BACTROBAN) 2 % apply externally Ointment 12-31 00:00: 00 Yes [id number] 1{appli cation} Apply 1 Applicatio n topically 2 times daily. Lizette mead Calcium Carbonate (TUMS 500 OR) 3 11:25: 03 Yes Take by mouth Lizette mead Melatonin 5 MG oral Tab 10-12 11:25: 03 Yes Take by mouth Lizette mead Calcium Carbonate (TUMS 500 OR) 10-12 11:14: 30 10-12 00:00 :00 No Take by mouth Lizette mead SERTraline (ZOLOFT) 50 mg tablet 12-01 00:00: 00 Yes [id number] Take 1/2 tab po daily x 1 week. Then increase to 1 tab po daily [facility] SERTraline 100 mg tablet 2 00:00: 00 12-01 00:00 :00 No [id number] 100mg Take 1 tablet by mouth daily. [facility] Meloxicam 7.5 MG oral Tab 03-04 00:00: 00 10-12 00:00 :00 No 1 or 2 tabs PO q day prn pain Lizette mead Acetaminoph en 650 MG oral Tab CR 02-24 00:00: 00 Yes [id number] 2 tablets every 8 hours as needed for pain Lizette mead Immunizations Ordered Immunization Name Filled Immunization Name Date Status Comments Source Polio (IPV/OPV) 2017-01-26 00:00:[address] [facility] Polio (IPV/OPV) 2017-01-26 00:00:[address] [facility] Polio (IPV/OPV) 2017-01-26 00:00:[address] [facility] Polio (IPV/OPV) 2017-01-26 00:00:[address] [facility] Polio (IPV/OPV) 2017-01-26 00:00:[address] [facility] Polio (IPV/OPV) 2017-01-26 00:00:[address] [facility] Polio (IPV/OPV) 2017-01-26 00:00:[address] [facility] Polio (IPV/OPV) 2017-01-26 00:00:[address] [facility] TDAP 2017-01-16 00:00:[address] [facility] Meningococcal Polysaccharide (groups A, C, Y and W-135) conjugate vaccine (MCV4P) 2017-01-16 00:00:[address] [facility] TDAP 2017-01-16 00:00:[address] [facility] Meningococcal Polysaccharide (groups A, C, Y and W-135) conjugate vaccine (MCV4P) 2017-01-16 00:00:[address] [facility] TDAP 2017-01-16 00:00:[address] [facility] Meningococcal Polysaccharide (groups A, C, Y and W-135) conjugate vaccine (MCV4P) 2017-01-[facility] [facility] [facility] Meningococcal Polysaccharide (groups A, C, Y and W-135) conjugate vaccine (MCV4P) 2017-01-16 [facility] [facility] [facility] Meningococcal Polysaccharide (groups A, C, Y and W-135) conjugate vaccine (MCV4P) 2017-01-16 00:00:[address] [facility] TDAP 2017-01-16 00:00:[address] [facility] Meningococcal Polysaccharide (groups A, C, Y and W-135) conjugate vaccine (MCV4P) 2017-01-16 00:00:[address] [facility] TDAP 2017-01-16 00:00:[address] [facility] Meningococcal Polysaccharide (groups A, C, Y and W-135) conjugate vaccine (MCV4P) 2017-01-16 00:00:[address] [facility] TDAP 2017-01-16 00:00:[address] [facility] Meningococcal Polysaccharide (groups A, C, Y and W-135) conjugate vaccine (MCV4P) 2017-01-16 00:00:[address] [facility] Meningococcal Vaccine- Conjugate(Menactra) Unknown Completed Lizette Benoit eybold - External Polio Vaccine Unknown Completed Lizette Seybold - External Tdap- (Boostrix, Adacel) Unknown Completed Lizette Kuhnybold - External Meningococcal Vaccine- Conjugate(Menactra) Unknown Completed Lizette Benoit eybold - External Polio Vaccine Unknown Completed Lizette Kuhnybold - External Tdap- (Boostrix, Adacel) Unknown Completed Lizette Sharmaold - External Meningococcal Vaccine- Conjugate(Menactra) Unknown Completed Lizette Benoit eybold - External Polio Vaccine Unknown Completed Lizette Seybold - External Tdap- (Boostrix, Adacel) Unknown Completed Lizette Kuhnybold - External Vital Signs Vital Name Observation Time Observation Value Comments S ource Body weight 2024-01-01 15:53:00 157.852 kg Amberly grossman Seybold - External BMI 2024-01-01 15:53:00 44.68 kg/m2 Amberly grossman Seybold - External Oxygen saturation in Arterial blood by Pulse oximetry 2024-01-01 15:53:00 98 /min Lizette Seybo ld - External Systolic blood pressure 2024-01-01 15:53:00 129 mm[Hg] Lizette Seybo ld - External Diastolic blood pressure 2024-01-01 15:53:00 84 mm[Hg] Lizette Seybo ld - External Heart rate 2024-01-01 15:53:00 86 /min Aisha crenshaw Seybold - External Respiratory rate 2024-01-01 15:53:00 20 /min Lizette Seybold - External Body height 2024-01-01 15:53:00 188 cm Amberly ey Seybold - External Systolic blood pressure 2023-10-13 17:10:00 124 mm[Hg] Lizette Seybo ld - External Diastolic blood pressure 2023-10-13 17:10:00 82 mm[Hg] Lizette Seybo ld - External Heart rate 2023-10-13 17:10:00 74 /min Vivekse y Seybold - External Body temperature 2023-10-13 17:10:00 36.83 Kailey Lizette Seybold - External Respiratory rate 2023-10-13 17:10:00 18 /min Lizette Seybold - External Body height 2023-10-13 17:10:00 188 cm Amberly ey Seybold - External Body weight 2023-10-13 17:10:00 159.213 kg Amberly ey Seybold - External BMI 2023-10-13 17:10:00 45.07 kg/m2 Amberly ey Seybold - External Oxygen saturation in Arterial blood by Pulse oximetry 2023-10-13 17:10:00 98 /min Lizette Hansen ld - External Systolic blood pressure 2021-12-01 21:46:00 120 mm[Hg] [facility] Diastolic blood pressure 2021-12-01 21:46:00 83 mm[Hg] [facility] Heart rate 2021-12-01 21:46:00 58 /min [facility] Body height 2021-12-01 21:46:00 190.5 cm [facility] Body weight 2021-12-01 21:46:00 148.009 kg [facility] BMI 2021-12-01 21:46:00 40.78 kg/m2 [facility] Oxygen saturation in Arterial blood by Pulse oximetry 2021-12-01 21:46:00 99 /min [facility] Procedures Procedure Date / Time Performed Performing Clinician Source EXTERNAL PROVIDER RECORDS 2022-05-02 05:01:00 Doctor Unassigned, De Leon [facility] EXTERNAL PROVIDER RECORDS 2021-12-11 05:01:00 Doctor Unassigned, De Leon [facility] AUTHORIZATION TO RELEASE PHI TO [facility] 2021-12-01 05:01:00 Doctor Unassigned, De Leon [facility] Encounters Start Date/Time End Date/Time Encounter Type Admission Type Attending [facility] Care Facility Care Department Encounter ID Source 2024-01-13 00:00:00 2024-01-13 00:00:00 Outpatient ANGELA HAWKINS [id number] Lizette zach 2024-01-12 11:15:00 2024-01-12 11:15:00 Out[facility]FF[id number] [facility]-12 10:00:00 2024-01-12 10:00:00 Outpatient ANGELA HAWKINS LIZETTE [id number] Liz[facility] 2024-01-01 11:00:00 2024-01-01 11:00:00 Outpatient ELENA COLEMAN LIZETTE BYRD [id number] [facility] 2024-01-01 00:00:00 2024-01-01 00:00:00 Outpatient ELENA COLEMAN LIZETTE BYRD [id number] [facility] 2023-12-28 00:00:00 2023-12-28 00:00:00 Outpatient BENIGNO NANCY LIZETTE BYRD [id number] Liz[facility] 2023-11-28 00:00:00 2023-11-28 00:00:00 Outpatient MD LIZETTE GONZALES [id number] [facility] 2023-11-26 00:00:00 2023-11-26 00:00:00 Outpatient NANCY PELAEZ [id number] [facility] 2023-11-21 08:05:00 2023-11-21 08:05:00 Outpatient LAB90 LIZETTE BYRD [id number] [facility] 2023-10-31 16:30:00 2023-10-31 16:30:00 Outpatient NANCY PELAEZ LIZETTE BYRD [id number] [facility] 2023-10-13 11:00:00 2023-10-13 11:00:00 Outpatient NANCY PELAEZ LIZETTE BYRD [id number] [facility] 2022-05-02 00:00:00 2022-05-02 00:00:00 Orders Only Doctor Unassigned, [place] [id number] 350.1.13.10 4.2.7.2.686 [id number] [facility] 2021-12-11 00:00:00 2021-12-11 00:00:00 Orders Only Doctor Unassigned, De Leon [facility] [id number] 350.1.13.10 4.2.7.2.686 [id number] [facility] 2021-12-05 00:00:00 2021-12-05 00:00:00 Telephone Che Etienne [facility] [id number] 350.1.13.10 4.2.7.2.686 [id number] [facility] 2021-12-03 00:00:00 2021-12-03 00:00:00 Telephone Che Etienne [facility] 1.84.114 350.1.13.10 4.2.7.2.686 [id number] [facility] 2021-12-02 15:30:00 2021-12-02 15:45:00 Homebirth Midwife Visit Lab, Ang - Kenneth Che Etienne [facility] 1.840.114 350.1.13.10 4.2.7.2.686 [id number] [facility] 2021-12-02 15:30:00 2021-12-02 15:30:00 Outpatient R JAIMIECARITO JOHANSENLIE [facility] [id number] [facility] 2021-12-02 00:00:00 2021-12-02 00:00:00 Telephone Che Etienne [facility] 1.840.114 350.1.13.10 4.2.7.2.686 [id number] [facility] 2021-12-01 16:30:00 2021-12-01 17:12:34 Office Visit Che Etienne [facility] 1.840.114 350.1.13.10 4.2.7.2.686 [id number] [facility] 2021-12-01 16:30:00 2021-12-01 17:12:34 Outpatient R CHE ETIENNE [facility] [id number] [facility] 2021-12-01 00:00:00 2021-12-01 00:00:00 Orders Only Doctor Unassigned, De Leon [facility] 1.0.114 350.1.13.10 4.2.7.2.686 [id number] [facility] 2021-03-19 00:00:00 2021-03-19 00:00:00 Refill Che Etienne [facility] 1.84.114 350.1.13.10 4.2.7.2.686 [id number] [facility] 2020-12-20 00:00:00 2020-12-20 00:00:00 Telephone Che Etienne [facility] 1..114 350.1.13.10 4.2.7.2.686 [id number] [facility] 2020-11-03 00:00:00 2020-11-03 00:00:00 Patient Outreach Tony Bentley [facility] 1..114 350.1.13.10 4.2.7.2.686 [id number] [facility] 2020-09-28 08:00:00 2020-09-28 08:00:00 Outpatient R NANCY EDWARDS [facility] [id number] [facility] 2020-09-24 08:49:58 2020-09-24 09:47:18 Office Visit Nancy Edwards [facility] 1.84.114 350.1.13.10 4.2.7.2.686 [id number] [facility] 2020-09-24 09:00:00 2020-09-24 09:00:00 Outpatient R NANCY EDWARDS [facility] [id number] [facility] 2019-04-01 10:34:17 2019-04-02 08:33:15 Office Visit Nancy Edwards [facility] [id number] 350.1.13.10 4.2.7.2.686 [id number] [facility] 2015-02-24 14:55:00 2015-02-24 14:55:00 Outpatient LIZETTE BYRD [id number] Lizette Cramer Notes Date/Time Note Provider Source 2023-10-13 11:25:28 Chief Complaint Patient presents with Physical Patient hasn't seen a doctor in a while. He is not fasting for labs, Nury Salazar LVN [facility]ette[facility]
[2024-04-14] MEDS ORDERED: THIAMINE 200 MG/2 ML INJ ONE (01:37)
[2024-04-14] MEDS ORDERED: MULTIVITAMINS 10 ML VIAL (INJ) IV ONE (01:38)
[2024-04-14] MEDS ORDERED: FOLIC ACID 5 MG/ML VIAL ONE (01:38)
[2024-04-14] MEDS ORDERED: NA CHLORIDE 0.9% 1,000 ML ONE (01:38)
[2024-04-14 02:00] LABS: Albumin 3.9 g/dL (3.4-5.0); Albumin/Globulin Ratio 0.9 (1.1-1.8); Anion Gap 7.9 mEq/L (5.0-15.0); Bilirubin Total 0.3 mg/dL (0.2-1.0); Globulin 4.4 g/dL (2.3-3.5); Potassium 3.9 mEq/L (3.5-5.1); Protein, Total 8.3 g/dL (6.4-8.2)
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
[2024-04-14 04:53] VITALS: TEMP 98.5
[2024-04-14 04:55] VITALS: O2SAT 97
[2024-04-14 04:58] VITALS: BP 106/57
--- NOTE | 2024-04-15 13:24 | RAD REPORT ---
CLINICAL HISTORY: Right wrist pain after a fall. COMPARISON: None. TECHNIQUE: XR WRIST 1-2 VIEWS RIGHT 04/14/2024 1:22 AM CDT FINDINGS: There is no fracture. Joint spaces are preserved. There is mild dorsal soft tissue swell ing. IMPRESSION: No acute osseous findings. Electronically signed by: Tan Park MD 04/14/2024 02:30 AM CDT RP Due to temporary technical issues with the PACS/Fluency reporting system, reports are being signed by the in house radiologist without review as a courtesy to ensure prompt reporting. The interpreting r adiologist is fully responsible for the content of the report.
--- NOTE | 2024-04-15 13:25 | RAD REPORT ---
EXAM DESCRIPTION: Shoulder Right 2 View CLINICAL HISTORY: Right shoulder pain. COMPARISON: None. TECHNIQUE: XR SHOULDER 2 OR MORE VIEWS RIGHT 04/14/2024 1:22 AM CDT FINDINGS: There is no fracture. Joint spaces are preserved. Soft tissues are unremarkable. IMPRESSION: No acute osseous findings. Electronically signed by: Tan Park MD 04/14/2024 02:30 AM CDT RP Due to temporary technical issues with the PACS/Fluency reporting system, reports are being signed by the in house radiologist without review as a courtesy to ensure prompt reporting. The interpreting r adiologist is fully responsible for the content of the report.
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
== END 2024-04-14 04:44 | disposition home or self-care (01) ==
LOC: ER 01:13
DX: F10.129 Alcohol abuse with intoxication, unspecified (principal); T75.1XXA Unspecified effects of drowning and nonfatal submersion, initial encounter; M25.511 Pain in right shoulder; M25.531 Pain in right wrist
CPT/HCPCS: 96365; 36415; 80053; 71045; 73030; 73100; 99285; 82077 ×2; J3411; J7030